=== PATIENT | male | born 1975 | race Caucasian/White ===

== ENCOUNTER 2019-05-21 14:45 | Emergency (ER) | payer MEDICAID ==
[~2019-05-21] VITALS: Ht 165.1 cm; Wt 75.0 kg
[2019-05-21] MEDS ORDERED: fluconazole 150mg tablet PO ONE (15:45)
[2019-05-21] MEDS ORDERED: CefTRIAXone 250MG IM Kit w/LIDOcaine IM ONE (15:45)
[2019-05-21] MEDS ORDERED: metroNIDAZOLE 500mg tablet PO ONE (15:45)
[2019-05-21] MEDS ORDERED: azithromycin 250mg tablet PO ONE (15:45)
[2019-05-21 17:12] VITALS: BP 125/75
== END 2019-05-21 17:13 | disposition home or self-care (01) ==
LOC: ER 14:45
DX: N48.89 Other specified disorders of penis (principal); A64 Unspecified sexually transmitted disease; F17.200 Nicotine dependence, unspecified, uncomplicated
CPT/HCPCS: 36415; 87252; 87491; 87591; 96372; 99284; J0696; J3490

== ENCOUNTER 2019-07-02 20:16 | Emergency (ER) | payer MEDICAID ==
[~2019-07-02] VITALS: Ht 165.1 cm; Wt 76.8 kg
[2019-07-02 20:20] VITALS: BP 137/97
[2019-07-02 20:57] LABS: CLARITY,URINE CLEAR (Clear); COLOR,URINE YELLOW (Yellow); GLUCOSE, URINE NEGATIVE (Neg); KETONES,URINE NEGATIVE (Neg); LEUKOCYTE ESTERASE ,URINE NEGATIVE (Neg); NITRITES, URINE NEGATIVE (Neg); OCCULT BLOOD,URINE NEGATIVE (Neg); PROTEIN,URINE NEGATIVE (Neg)
[2019-07-02 21:03] LABS: UA COLLECTION TYPE CLN CATCH MIDSTREAM
[2019-07-02] MEDS ORDERED: penicillin G benzathine 1.2 million unit/2ml syringe IM ONE (21:20)
[2019-07-02] MEDS ORDERED: CefTRIAXone 1000mg IM Kit (w/lidocaine diluent) IM ONE (21:20)
[2019-07-02] MEDS ORDERED: azithromycin 250mg tablet PO ONE (21:20)
[2019-07-02] MEDS ORDERED: ondansetron 4mg rapidly disintigrating tab PO ONE (21:20)
[2019-07-04 05:20] LABS: RPR Reactive (Non Reactive)
--- NOTE | 2019-07-06 08:56 | NUR ---
PT CALLED AND NOTIFIED THAT HE HAD A REACTIVE RPR AND THAT FUTHER F/U WITH HIS PMD WAS REQUIRED. PT ALSO NOTIFIED THAT IS WAS RECOMMENDED THAT HE NOTIFY ANY OF HIS PERSONAL CONTACTS OF HIS TEST RESULTS AND THAT THEY TOO NEED TO F/U WITH THEIR PMD. PT STATED UNDERSTANDING.
== END 2019-07-02 22:11 | disposition home or self-care (01) ==
LOC: ER 20:16
DX: N48.5 Ulcer of penis (principal); Z11.3 Encounter for screening for infections with a predominantly sexual mode of transmission; F17.200 Nicotine dependence, unspecified, uncomplicated; F12.90 Cannabis use, unspecified, uncomplicated
CPT/HCPCS: 36415; 81003; 86592; 87491; 87591; 96372; 99283; J0561; J0696

== ENCOUNTER 2020-12-18 20:21 | Emergency (ER) | payer MEDICAID ==
[~2020-12-18] VITALS: Ht 165.1 cm; Wt 75.6 kg
[2020-12-18 20:32] VITALS: BP 149/94
[2020-12-18] MEDS ORDERED: azithromycin 250mg tablet PO ONE (22:05)
[2020-12-18] MEDS ORDERED: CefTRIAXone 1000mg IM Kit (w/lidocaine diluent) IM ONE (22:05)
[2020-12-18] MEDS ORDERED: DOXY100C43 PO (22:07)
== END 2020-12-18 22:25 | disposition home or self-care (01) ==
LOC: ER 20:22
DX: A64 Unspecified sexually transmitted disease (principal); F12.90 Cannabis use, unspecified, uncomplicated; Z72.89 Other problems related to lifestyle; Z79.899 Other long term (current) drug therapy
CPT/HCPCS: 96372; 99283; J0696

== ENCOUNTER 2021-11-29 00:01 | Emergency (ER) | payer MEDICAID ==
[~2021-11-29] VITALS: Ht 165.1 cm; Wt 80.0 kg
[2021-11-29 00:03] VITALS: BP 146/98
[2021-11-29] MEDS ORDERED: LIDOcaine 1% W/epiNEPHrine 1:200,000 10ml vial IJ ONE (00:55)
[2021-11-29] MEDS ORDERED: cephalexin 500mg capsule PO ONE (00:55)
[2021-11-29] MEDS ORDERED: sulfamethoxazole/trimethoprim DS (800/160mg) tablet PO ONE (00:55)
[2021-11-29] MEDS ORDERED: CEPH-585 PO (00:59)
[2021-11-29] MEDS ORDERED: SULF1TAB49 PO (00:59)
[2021-11-29] MEDS ORDERED: LIDOcaine 1% W/epiNEPHrine 1:100,000 20ml vial ONE (03:00)
--- NOTE | 2021-12-04 09:22 | NUR ---
Called patient and left x2 voicemail messages without a call back. Letter sent to patients listed address. Patient is to discontinue both keflex and bactrim; called in RX for levaquin 500 mg 1 tab PO QD x 7 days total to disp 7 with [address] Martin
== END 2021-11-29 01:17 | disposition home or self-care (01) ==
LOC: ER 00:02
DX: L03.116 Cellulitis of left lower limb (principal); F17.200 Nicotine dependence, unspecified, uncomplicated; Z79.2 Long term (current) use of antibiotics; Z79.899 Other long term (current) drug therapy
CPT/HCPCS: 10160; 87070; 87077; 87186; 99284; J3490; 10060; 99283; 99285

== ENCOUNTER 2023-04-04 21:50 | Emergency (ER) | payer MEDICAID ==
[~2023-04-04] VITALS: Ht 165.1 cm; Wt 75.0 kg
[2023-04-04 22:30] VITALS: BP 163/109
[2023-04-04] MEDS ORDERED: DOXY150T5 PO (23:00)
== END 2023-04-04 23:09 | disposition home or self-care (01) ==
LOC: ER 21:51
DX: L03.116 Cellulitis of left lower limb (principal)
CPT/HCPCS: 99283

== ENCOUNTER 2023-05-08 22:07 | Emergency (ER) | payer MEDICAID ==
[~2023-05-08] VITALS: Ht 162.6 cm; Wt 82.6 kg
[2023-05-08 22:29] VITALS: BP 169/97; PULSE 104; RESP 18; TEMP 99; O2SAT 99
[2023-05-08] MEDS ORDERED: CEPH-585 PO (23:59)
[2023-05-08] MEDS ORDERED: SULF1TAB45 PO (23:59)
[2023-05-09] MEDS ORDERED: sulfamethoxazole/trimethoprim DS (800/160mg) tablet PO ONE
[2023-05-09] MEDS ORDERED: cephalexin 500mg capsule PO ONE
== END 2023-05-09 00:14 | disposition home or self-care (01) ==
LOC: ER 22:07
DX: L02.511 Cutaneous abscess of right hand (principal); L03.113 Cellulitis of right upper limb; Z79.2 Long term (current) use of antibiotics; Z79.899 Other long term (current) drug therapy
CPT/HCPCS: 99283